=== PATIENT | male | born 1965 | race African-American/Black ===

== ENCOUNTER 2018-08-18 14:42 | Emergency (ER) | payer OTHER ==
[2018-08-18 14:50] VITALS: BP 136/85; PULSE 75; TEMP 98.4; BMI 28.1
[2018-08-18] MEDS ORDERED: AZITHROMYCIN 250 MG TABLET PO ONE (14:57)
--- NOTE | 2018-08-18 15:31 | PDOC ---
History of Present Illness - General Chief Complaint: Penile Drainage Stated Complaint: MALE ISSUES Time Seen by Provider: 08/18/18 14:55 - History of Present Illness Initial Comments: 08/18/18 15:31 52-year-old male without comorbidities presents for evaluation of penile discharge and fever 3 days after unprotected sex in [place] 2 weeks ago Past History - Past Medical History Allergies/Adverse Reactions: Allergies Allergy/AdvReac Type Severity Reaction Status Date / Time No Known Allergies Allergy Verified 08/18/18 14:50 Home Medications: Ambulatory Orders NK [No Known Home Medication] 08/18/18 Anemia: No Asthma: No Cancer: No Cardiac Disorders: No CVA: No COPD: No CHF: No DVT: No Dementia: No Diabetes: No Dialysis: No GI Disorders: No Disorders: No HTN: No Hypercholesterolemia: No Kidney Stones: No Liver Disease: No Psychiatric Problems: No Seizures: No Thyroid Disease: No Lung CA: No - Suicide/Smoking/Psychosocial Hx Smoking Status: No Smoking History: Never smoked Number of Cigarettes Smoked Daily: 0 Review of Systems - Review of Systems Constitutional: Yes: Fever : Yes: Discharge *Physical Exam - Vital Signs Last Vital Signs Temp Pulse Resp BP Pulse Ox 98.4 F 75 18 136/85 98 08/18/18 14:47 08/18/18 14:47 08/18/18 14:47 08/18/18 14:47 08/18/18 14:47 - Physical Exam Comments: 08/18/18 15:31 HEAD: NC/AT EYES: Conjuntiva clear External genitalia grossly normal MS: Full ROM in all joints without edema NEUROLOGIC: No gross sensory or motor deficits, NVID SKIN: Normal color and temperature no lesions or rashes Medical Decision Making - Medical Decision Making 08/18/18 15:57 Discussed tx plan and need for retesting and f/u for HIV *DC/Admit/Observation/Transfer Diagnosis at time of Disposition: Possible exposure to STD - Discharge Dispostion Disposition: HOME Condition at time of disposition: Stable Decision to Admit order: No - Referrals Referrals: [facility] Providers [Provider Group] - Patient Instructions Printed Discharge Instructions: Facts About Sexually Transmitted Infections, How to Detect and Treat STDs, Chlamydia: The Silent STD Additional Instructions: Your HIV test was negative today. Syphilis test was negative today. You were treated for gonorrhea and chlamydia please follow-up with the [facility] for further evaluation and treatment. He should not require further antibiotics. You need to be retested for HIV in 3 months and then again in 6 months. Return to the emergency room for further issues otherwise follow-up at the [facility] in 2-3 days for further evaluation and treatment options well is retesting in 3 months. - Post Discharge Activity
[2018-08-18] MEDS ORDERED: AZITHROMYCIN 250 MG TABLET ONE (15:36)
[2018-08-18 15:45] LABS: EPI CELLS 1.7 /HPF (0-5/HPF); URINE APPEARANCE CLEAR; URINE BILIRUBIN NEGATIVE (NEGATIVE); URINE CASTS 2 /hpf (0-8); URINE COLOR YELLOW; URINE GLUCOSE (UA) NEGATIVE (NEGATIVE); URINE KETONE NEGATIVE (NEGATIVE); URINE LEUK ESTERASE 2+ (NEGATIVE); URINE NITRITE NEGATIVE (NEGATIVE); URINE PROTEIN NEGATIVE (NEGATIVE); URINE RBC 1 /hpf (0-4); URINE UROBILINOGEN 0.2 mg/dL (0.2-1.0); URINE WBC 40 /hpf (0-5)
== END 2018-08-18 16:12 | disposition home or self-care (01) ==
LOC: JERFT 14:42
DX: Z20.2 Contact with and (suspected) exposure to infections with a predominantly sexual mode of transmission (principal)
CPT/HCPCS: 36415; 81003; 86593; 87086; 87389; 87491; 87591; 99281-25

== ENCOUNTER 2024-06-24 17:10 | Emergency (ER) | payer OTHER ==
[2024-06-24 17:20] VITALS: BP 139/88; PULSE 75; RESP 18; TEMP 98.8; BMI 26.3
[2024-06-24 19:35] LABS: BASO % 0.6 % (0-2.0); EOS % 1.2 % (0-4.5); HEMATOCRIT 45.4 % (35.4-49); HEMOGLOBIN 14.7 GM/dL (11.7-16.9); LYMPH % 42.7 % (8-40); MCHC 32.4 g/dl (32.0-35.9); MEAN CELL VOLUME 83.3 fl (80-96); MEAN PLT VOLUME 9.2 fl (7.5-11.1); MONO % 10.1 % (3.8-10.2); NEUT % 45.4 % (42.8-82.8); PLATELET COUNT 169 10^3/uL (134-434); RBC 5.45 M/mm3 (4.00-5.60); RDW 14.3 % (11.9-15.9); WHITE BLOOD COUNT 4.4 K/mm3 (4.0-10.0)
[2024-06-24 20:01] LABS: CALCIUM 9.1 mg/dL (8.5-10.1)
[2024-06-24 20:02] LABS: ALBUMIN 4.1 g/dl (3.4-5.0); BLOOD UREA NITROGEN 19.2 mg/dL (7-18)
[2024-06-24 20:04] LABS: CREATININE 1.3 mg/dL (0.55-1.3)
[2024-06-24 20:07] LABS: BILIRUBIN,TOTAL 0.8 mg/dL (0.2-1); TOT PROT 7.5 g/dl (6.4-8.2)
[2024-06-24 20:58] LABS: HIV INTERPRETATION NEGATIVE (NEGATIVE)
== END 2024-06-24 21:16 | disposition home or self-care (01) ==
LOC: JERFT 17:10
DX: R20.0 Anesthesia of skin (principal); R20.2 Paresthesia of skin; M79.604 Pain in right leg; M79.605 Pain in left leg; Z20.822 Contact with and (suspected) exposure to COVID-19
CPT/HCPCS: 0241U-QW; 36415; 70450-TC; 72131-TC; 80053; 83036; 83690; 84439; 84443; 85025; 86803; 87389; 99284-25

== ENCOUNTER 2024-11-15 13:31 | Emergency (ER) | payer OTHER ==
[2024-11-15 13:40] VITALS: RESP 16; TEMP 98; BMI 21.9
[2024-11-15 14:58] LABS: ABSOLUTE IMMATURE GRANULOCYTES 0.00 x10^3/uL (0.0-0.031); BASOPHILS # 0.02 x10^3/uL (0.01-0.08); EOSINOPHIL % 1.5 % (0.8-7.0); EOSINOPHILS # 0.05 x10^3/uL (0.04-0.54); MCHC 31.0 g/dl (32.3-36.5); MEAN CELL VOLUME 85.4 fl (79.0-92.2); MEAN PLT VOLUME 10.4 fl (9.4-12.4); MONOCYTE # 0.35 x10^3/uL (0.30-0.82); MONOCYTE % 10.6 % (5.3-12.2); RDW 13.1 % (12.2-16.1)
[2024-11-15 15:06] LABS: INR 1.14 (0.83-1.09); PROTHROMBIN TIME (PATIENT) 12.4 SEC (9.7-13.0)
[2024-11-15 15:09] LABS: ACTIVATED PTT 29.2 SECONDS (25.2-36.5)
[2024-11-15 15:36] LABS: ALK PHOS 72.0 U/L (45-117); CO2 29.0 mmol/L (21-32); CREATININE 1.0 mg/dL (0.55-1.3); GLUCOSE,RANDOM 80.0 mg/dL (74-106); SGOT/AST 26.0 U/L (15-37); SGPT/ALT 27.0 U/L (13-61); TOT PROT 7.4 g/dl (6.4-8.2)
[2024-11-15 16:11] LABS: HIV INTERPRETATION NEGATIVE (NEGATIVE)
[2024-11-15 16:12] LABS: HCV DIAGNOSTIC IN-HOUSE W/RFLX NON-REACTIVE (NONREACTIVE)
[2024-11-15 16:13] VITALS: BP 123/86; PULSE 56
== END 2024-11-15 16:13 | disposition home or self-care (01) ==
LOC: JER 13:31
DX: R07.89 Other chest pain (principal); R51.9 Headache, unspecified; R25.1 Tremor, unspecified
CPT/HCPCS: 36415; 71046-TC-FY; 80053; 83735; 84439; 84443; 84484; 85025; 85610; 85730; 86803; 87389; 93005; 93010; 99285-25